=== PATIENT | female | born 1985 | race Caucasian/White ===

== ENCOUNTER 2017-12-07 11:00 | Observation (INO) | payer OTHER ==
[~2017-12-07] VITALS: Ht 175 cm; Wt 79.4 kg
[2017-12-07 12:24] VITALS: BP 97/66
== END 2017-12-07 14:00 | disposition home or self-care (01) ==
LOC: 4S 11:00 → PREOBSVTOIN 01-20 11:15 → PREINTOOBSV 01-20 11:16 → PREOBSVTOIN 01-20 11:17
PROVIDERS: ADMIT Obstetrics & Gynecology; ATTEND Obstetrics & Gynecology
DX: O48.0 Post-term pregnancy (principal); Z3A.40 40 weeks gestation of pregnancy
CPT/HCPCS: 59025; G0378

== ENCOUNTER 2017-12-12 08:30 | Inpatient (IN) | payer OTHER ==
[~2017-12-12] VITALS: Ht 175.3 cm; Wt 79.8 kg
[2017-12-12 09:03] VITALS: BP 108/71
[2017-12-12] MEDS ORDERED: PNV1TABL54 PO (09:03)
[2017-12-12] MEDS ORDERED: OXYTOCIN 30 UNITS/LACT RINGERS 500 ML IV ONE ×2 (09:22→09:31)
[2017-12-12] MEDS ORDERED: RINGERS SOLUTION,LACTATED 1,000 ML IV ONE (09:22)
[2017-12-12] MEDS ORDERED: RINGERS SOLUTION,LACTATED 1,000 ML IV PRN (09:31)
[2017-12-12] MEDS ORDERED: FentaNYL CITRATE-PF 100 MCG/2 ML VIAL IVP PRN (09:45)
[2017-12-12] MEDS ORDERED: METOCLOPRAMIDE HCL 5 MG/ML 2 ML VIAL IVP PRN (09:45)
[2017-12-12] MEDS ORDERED: METHYLERGONOVINE MALEATE 0.2 MG/ML VIAL IM PRN (09:45)
[2017-12-12] MEDS ORDERED: CITRIC ACID/SODIUM CITRATE 30 ML SOLUTION UDCUP PO PRN (09:45)
[2017-12-12] MEDS ORDERED: LIDOCAINE HCL/PF 1% 30 ML VIAL INJ PRN (09:45)
[2017-12-12] MEDS ORDERED: MAGNESIUM HYDROXIDE SUSPENSION 30 ML UDCUP PO ONE (10:00)
[2017-12-12] MEDS: RINGERS SOLUTION,LACTATED 1,000 ML IV SCH ×3 (10:16→17:50)
[2017-12-12] MEDS ORDERED: ROPIVACAINE HCL/PF 0.2% 100 ML ED ONE (10:21)
[2017-12-12 10:23] LABS: BASOPHILS % (AUTO) 0.1 % (0.0-2.0); EOSINOPHILS % (AUTO) 0 % (1.0-6.0); HEMATOCRIT 38.7 % (36-46); HEMOGLOBIN 13.1 g/dL (12.0-16.0); LYMPHOCYTES # (AUTO) 1.5 K/uL (1.0-4.8); LYMPHOCYTES % (AUTO) 12.2 % (22.0-44.0); MEAN CORPUSCULAR HEMOGLOBIN 28.8 pg (26.0-34.0); MEAN CORPUSCULAR HGB CONC 33.8 G/dL (31.0-37.0); MEAN CORPUSCULAR VOLUME 85 fL (80-100); MONOCYTES # (AUTO) 0.4 K/uL (0.1-1.0); MONOCYTES % (AUTO) 3.5 % (2.0-9.0); NEUTROPHILS # (AUTO) 10.4 K/uL (1.8-7.7); NEUTROPHILS % (AUTO) 84.2 % (40.0-70.0); PLATELET COUNT (AUTO)-OB 183 K/uL (150-450); RED BLOOD CELL COUNT(AUTO) 4.55 MIL/uL (4.00-5.20); RED CELL DISTRIBUTION WIDTH 14.7 % (11.5-14.5)
[2017-12-12] MEDS ORDERED: OXYTOCIN 30 UNITS/LACT RINGERS 500 ML IV PRN (13:31)
[2017-12-12] MEDS ORDERED: CeFAZolin 2 GM/DEXTROSE 50 ML IV ONE ×3 (15:58→22:00)
[2017-12-12] MEDS ORDERED: BENZOCAINE 20%/MENTHOL 56 GM SPRAY CANISTER TP PRN (17:00)
[2017-12-12] MEDS ORDERED: ACETAMINOPHEN/CODEINE 300-30 MG TABLET PO PRN ×2 (17:00)
[2017-12-12] MEDS ORDERED: LANOLIN 7 GM OINTMENT TP PRN (17:00)
[2017-12-12] MEDS ORDERED: GLYCERIN/WITCH HAZEL LEAF 40 PADS JAR TP PRN (17:00)
[2017-12-12] MEDS: IBUPROFEN 800 MG TABLET PO SCH (17:26)
[2017-12-12] MEDS ORDERED: GENTAMICIN SULFATE 160 MG in DEXTROSE 5%-WATER 50 ML IV ONE (18:15)
[2017-12-12] MEDS ORDERED: SENNA/DOCUSATE SODIUM 187-50 MG TABLET PO ONE (18:30)
[2017-12-12] MEDS ORDERED: OXYGEN THERAPY IH SCH (20:00)
[2017-12-12] MEDS: MAGNESIUM HYDROXIDE SUSPENSION 30 ML UDCUP PO SCH (21:31)
[2017-12-12] MEDS ORDERED: CeFAZolin 2 GM/DEXTROSE 50 ML IV SCH (22:00)
[2017-12-13] MEDS: IBUPROFEN 800 MG TABLET PO SCH ×3 (00:25→13:54)
[2017-12-13] MEDS: MAGNESIUM HYDROXIDE SUSPENSION 30 ML UDCUP PO SCH (08:36)
[2017-12-13] MEDS ORDERED: IBUP-2071 PO (15:23)
== END 2017-12-13 17:15 | disposition home or self-care (01) | DRG 775 ==
LOC: OBSVTOIN 08:30 → 4S 08:30
PROVIDERS: ADMIT Obstetrics & Gynecology; ATTEND Obstetrics & Gynecology
PROC: 10D07Z6 Extraction of Products of Conception, Vacuum, Via Natural or Artificial Opening (ICD-10-PCS; principal; 2017-12-12)
PROC: 0UQGXZZ Repair Vagina, External Approach (ICD-10-PCS; 2017-12-12)
PROC: 0W8NXZZ Division of Female Perineum, External Approach (ICD-10-PCS; 2017-12-12)
PROC: 3E0R3BZ Introduction of Anesthetic Agent into Spinal Canal, Percutaneous Approach (ICD-10-PCS; 2017-12-12)
PROC: 00HU33Z Insertion of Infusion Device into Spinal Canal, Percutaneous Approach (ICD-10-PCS; 2017-12-12)
DX: O77.0 Labor and delivery complicated by meconium in amniotic fluid (principal); O70.4 Anal sphincter tear complicating delivery, not associated with third degree laceration; Z37.0 Single live birth; Z3A.40 40 weeks gestation of pregnancy
CPT/HCPCS: 86850; 86900; 86901; J0690; J1580; J2590; J2795; J7060; J7120